=== PATIENT | female | born 1970 | race Caucasian/White ===

== ENCOUNTER 2017-05-17 05:28 | Emergency (ER) | payer OTHER ==
[~2017-05-17] VITALS: Ht 165.1 cm; Wt 72.6 kg
[2017-05-17 06:16] LABS: INFLUENZA A ANTIGEN None Detected (None Detect)
[2017-05-17] MEDS ORDERED: HYDROCODONE-ACE15 ML PO (06:16)
[2017-05-17 06:25] VITALS: BP 111/84
== END 2017-05-17 06:25 | disposition home or self-care (01) ==
LOC: M.ERS 05:28
PROVIDERS: Emergency Medicine
DX: J11.1 Influenza due to unidentified influenza virus with other respiratory manifestations (principal); Z90.710 Acquired absence of both cervix and uterus; R51 Headache